=== PATIENT | female | born 1965 | race Caucasian/White ===

== ENCOUNTER 2018-04-16 11:01 | Emergency (ER) | payer MEDICARE, OTHER ==
[~2018-04-16] VITALS: Ht 172.7 cm; Wt 117.9 kg
[~2018-04-16 11:01] MED LIST: BACL10 PO; BUPR150T2 PO; GABA600 PO; HYDCHL12.5 PO; LISI20 PO; MORP15ER PO; Metoprolol Tar100 MG PO; NAPR500 PO; NORT25 PO; PRED10 PO; PROM25 PO; Roxicodone15 MG PO; TRAM50 PO
[2018-04-16] MEDS ORDERED: VOLTAREN100 GM TOP (11:08)
== END 2018-04-16 11:50 | disposition home or self-care (01) ==
LOC: ER 11:01
DX: M25.562 Pain in left knee (principal); I10 Essential (primary) hypertension; Z87.891 Personal history of nicotine dependence; Z88.2 Allergy status to sulfonamides; Z79.899 Other long term (current) drug therapy
CPT/HCPCS: J1885

== ENCOUNTER → 2018-08-04 | Outpatient (CLI) | payer MEDICARE, OTHER ==
[~2018-08-04] MED LIST changes: +VOLTAREN100 GM TOP
[2018-08-06 15:08] LABS: HPV 16 Negative (Negative); HPV 18 Negative (Negative); HPV OTHER HR TYPES Negative (Negative)
== END | disposition home or self-care (01) ==
LOC: LAB SHORT 11:56 → LAB 11:56
PROVIDERS: Nurse Practitioner Obstetrics & Gynecology
DX: Z01.419 Encounter for gynecological examination (general) (routine) without abnormal findings (principal)
CPT/HCPCS: 87624; G0123

== ENCOUNTER → 2019-03-10 | Outpatient (CLI) | payer MEDICARE, OTHER ==
[~2019-03-10] MED LIST changes: +ALBU90OI INH; +Aspir 8181 MG PO; +CELE200 PO; +Cymbalta30 MG PO; +Flonase 0.05% N16 GM; +METO100 PO; +MORP30ER PO; +Neurontin600 MG PO; +Oxycodone HCl20 M1 PO; +ZOLP5 PO; +Zantac150 MG PO
[2019-03-11 13:43] LABS: Stool Occult Bld Immuno 1 Positive (NEGATIVE)
== END | disposition home or self-care (01) ==
LOC: LAB SHORT 12:50 → LAB 12:50 → LAB FUT 01-21 16:15
PROVIDERS: Internal Medicine
DX: Z12.11 Encounter for screening for malignant neoplasm of colon (principal)
CPT/HCPCS: G0328

== ENCOUNTER 2019-04-14 08:55 | Day surgery (SDC) | payer MEDICARE ==
[~2019-04-14] VITALS: Ht 172.7 cm; Wt 115.9 kg
--- NOTE | 2019-04-14 10:03 | NUR ---
04/14/19 1003 Julia Herring 3 MISSED IV 1 IN RH BY MIRANDA VALVE 1 IN RW BY MIRANDA VALVE 1 RAC BY AGNES VALVE 1 GOOD IV IN LH BY AGNES PT TOW
== END 2019-04-14 11:15 | disposition home or self-care (01) ==
LOC: ORSCSDS 08:55
PROVIDERS: Internal Medicine Gastroenterology
PROC: 0DBN8ZX Excision of Sigmoid Colon, Via Natural or Artificial Opening Endoscopic, Diagnostic (ICD-10-PCS; principal; 2019-04-14 10:15)
PROC: 0DBL8ZX Excision of Transverse Colon, Via Natural or Artificial Opening Endoscopic, Diagnostic (ICD-10-PCS; principal; 2019-04-14 10:15)
DX: R19.5 Other fecal abnormalities (principal); D12.5 Benign neoplasm of sigmoid colon; K63.5 Polyp of colon; K64.8 Other hemorrhoids; Z86.010 Personal history of colon polyps; I10 Essential (primary) hypertension; Z87.891 Personal history of nicotine dependence; Z79.82 Long term (current) use of aspirin; Z79.899 Other long term (current) drug therapy
CPT/HCPCS: 88305; J2704; J7120

== ENCOUNTER → 2019-04-16 | Outpatient (CLI) | payer MEDICARE ==
[2019-04-16 16:15] LABS: U Amphetamine Screen Not Detected; U Barbituate Screen Not Detected; U Benzodiazapine Screen Not Detected; U Buprenorphine Screen Not Detected; U Cannabinoids Screen Not Detected; U Cocaine Screen Not Detected; U Methadone Screen Not Detected; U Methamphetamine Screen Not Detected; U Opiates Screen DETECTED; U Oxycodone Screen Not Detected; U Phencyclidine Screen Not Detected; U Propoxyphene Screen Not Detected
== END | disposition home or self-care (01) ==
LOC: LAB 11:46 → LAB SHORT 11:46
PROVIDERS: Internal Medicine
DX: Z51.81 Encounter for therapeutic drug level monitoring (principal); Z79.891 Long term (current) use of opiate analgesic
CPT/HCPCS: G0480

== ENCOUNTER 2020-10-18 04:11 | Observation (INO) | payer MEDICARE, SELFPAY ==
[~2020-10-18] VITALS: Ht 172.7 cm; Wt 121.9 kg
[~2020-10-18 04:11] MED LIST changes: +FAMO20 PO
[2020-10-18 05:48] LABS: Source, Urine Catheter
[2020-10-18 05:57] LABS: Appearance, Urine Clear (Clear); Bilirubin, Urine Neg (Neg); Blood, Urine Neg (Neg); Color, Urine Yellow (P-Yellow); Glucose Qualitative, Urine Neg (Neg); Ketones, Urine Neg (Neg); Leukocyte Esterase, Urine Neg (Neg); Nitrite, Urine Neg (Neg); Protein, Urine Neg (Neg); Urobilinogen, Urine NORM (Normal)
[2020-10-18 06:19] LABS: Alanine Aminotransfer (ALT/SGP 27 U/L (12-78); Albumin, Blood 3.2 g/dL (3.4-5.0); Alk Phos 117 U/L (50-136); Anion Gap 8 mmol/L (6-16); Aspartate Aminotrans (AST/SGOT 19 U/L (12-37); Bilirubin, Total 0.6 mg/dL (0.1-1.0); Blood Urea Nitrogen 14 mg/dL (8-24); Bun/Creatinine Ratio 24.4 (12.0-20.0); CO2, Blood 28 mmol/L (21-32); Calcium, Blood 8.3 mg/dL (8.5-10.1); Chloride, Blood 108 mmol/L (98-108); Creatinine, Blood 0.57 mg/dL (0.40-1.00); Ethanol (Alcohol), Blood, Med <3 mg/dL; Globulin, Blood 3.3 g/dL (2.2-4.0); Glomerular Filtration Rate >60 (60-); Glucose, Blood 127 mg/dL (70-99); Potassium, Blood 3.6 mmol/L (3.5-5.5); Sodium, Blood 144 mmol/L (136-145); Total Protein, Blood 6.5 g/dL (6.4-8.2); Troponin I <0.015 ng/mL (0.000-0.040)
[2020-10-18 06:23] LABS: U Amphetamine Screen Not Detected; U Barbituate Screen Not Detected; U Benzodiazapine Screen Not Detected; U Buprenorphine Screen Not Detected; U Cannabinoids Screen Not Detected; U Cocaine Screen Not Detected; U Methadone Screen Not Detected; U Methamphetamine Screen Not Detected; U Opiates Screen DETECTED; U Oxycodone Screen DETECTED; U Phencyclidine Screen Not Detected; U Propoxyphene Screen Not Detected
[2020-10-18 06:25] LABS: BASOPHILS ABSOLUTE AUTO 0.04 K/mm3 (0.00-0.23); BASOPHILS PERCENT AUTO 1 % (0-2); EOSINOPHILS ABSOLUTE AUTO 0.11 K/mm3 (0.00-0.68); EOSINOPHILS PERCENT AUTO 1 % (0-6); Hematocrit 36.4 % (33.0-51.0); Hemoglobin 11.6 g/dL (11.5-16.0); IMMATURE GRAN ABSOLUTE AUTO 0.03 K/mm3 (0.00-0.10); IMMATURE GRAN PERCENT AUTO 0 % (0-1); LYMPHOCYTES ABSOLUTE AUTO 1.37 K/mm3 (0.84-5.20); LYMPHOCYTES PERCENT AUTO 17 % (21-46); MONOCYTES ABSOLUTE AUTO 0.43 K/mm3 (0.16-1.47); MONOCYTES PERCENT AUTO 6 % (4-13); Mean Corpuscular HGB 28.6 pg (26.0-34.0); Mean Corpuscular HGB Conc 31.9 g/dL (31.5-36.5); Mean Corpuscular Volume 90 fL (80-100); Mean Platelet Volume 10.9 fL (9.1-12.4); NEUTROPHILS PERCENT AUTO 75 % (41-73); Platelet Count 179 K/mm3 (150-400); RDW Coefficient Variation 13.8 % (11.7-14.2); RDW Standard Deviation 44.9 fL (35.1-46.3); Red Blood Cell Count 4.06 M/mm3 (3.80-5.20); White Blood Cell Count 7.88 K/mm3 (4.00-11.30)
[2020-10-18 06:35] LABS: Influenza A, PCR NEGATIVE (NEGATIVE); Influenza B, PCR NEGATIVE (NEGATIVE); Resp Syncytial Virus, PCR NEGATIVE (NEGATIVE); SARS-Cov-2 (COVID-19) PCR, MMC NEGATIVE (NEGATIVE)
[2020-10-18 06:48] LABS: International Normalized Ratio 0.99; Prothrombin Time Results 10.6 Sec (9.7-11.5)
[2020-10-18 07:45] LABS: PCO2 Arterial 38.7 mmHg (35-45); pH Blood Arterial 7.49 (7.35-7.45)
--- NOTE | 2020-10-18 11:51 | NUR ---
ARRIVES TO ROOM AT ABOUT 1035. USED SLIDER TO GET PATIENT TO MED FLOOR BED. ASKS FOR PAIN MEDS ALMOST IMMEDIATELY. FALLS ASLEEP DURING ADMIT PROCESS. MOVES LEGS AND ARMS COSTANTLY. IV TO RT UPPER C.W. WITH SALINE GOING IN VIA PUMP. REMINDED CONSTANTLY ABOUT NOT MOVING HER ARM SO FLUIDS CAN GO IN. SAT PATIENT UP AND GAVE HER WATER AND DRANK WITHOUT DIFFICULTY, SO GIVEN P.O. MEDS.DOES NOT ANSWER ALL QUESTIONS TO ADMIT. BED ALARM ON AND 3 SIDE RAILS UP. [facility]
--- NOTE | 2020-10-18 14:56 | NUR ---
TALKED TO ABOUT PATIENT WANTING HER PAIN MEDS. NOT DROWSEY WHEN ADMITTED AND NOT THRASHING AROUND MUCH. TAKES MULTIPLE MEDS TO CAUSE DROWSINESS. THOUGHT POSSIBLE WITHDRAW, BUT URINE POSITIVE FOR OPIATES AND OXY. TAKES OXY 20 MG Q6HRS. OK TO ORDER OXY 5 MG Q6 HRS PRN
--- NOTE | 2020-10-18 17:22 | NUR ---
ALERT. ORIENTED. ONE PERSON ASSIST STANDBY W/CUES TO BSC. UNLABORED RESPIRATIONS. APPEARS A LITTLE MORE COMFORTABLE NOT THRASHING AROUND MUCH WHEN FIRST ARRIVED. MOMS NUMBER PLACED ON WHITE BOARD. IV RT UPPER C.W. SALINE LOCKED. USES CALL LIGHT APPROPRIATELY. WCTM
[2020-10-19 04:43] LABS: Source, Urine Clean Catch
[2020-10-19 04:45] LABS: Appearance, Urine Clear (Clear); Bilirubin, Urine Neg (Neg); Blood, Urine Neg (Neg); Color, Urine Yellow (P-Yellow); Glucose Qualitative, Urine Neg (Neg); Ketones, Urine Neg (Neg); Leukocyte Esterase, Urine Neg (Neg); Nitrite, Urine Neg (Neg); Protein, Urine Neg (Neg); Urobilinogen, Urine NORM (Normal)
[2020-10-19 05:04] LABS: Hemoglobin 11.7 g/dL (11.5-16.0); Mean Corpuscular HGB 28.6 pg (26.0-34.0); Mean Corpuscular HGB Conc 32.5 g/dL (31.5-36.5); Mean Corpuscular Volume 88 fL (80-100); Mean Platelet Volume 11.1 fL (9.1-12.4); Platelet Count 194 K/mm3 (150-400); RDW Coefficient Variation 13.6 % (11.7-14.2); RDW Standard Deviation 43.9 fL (35.1-46.3); Red Blood Cell Count 4.09 M/mm3 (3.80-5.20); White Blood Cell Count 7.05 K/mm3 (4.00-11.30)
[2020-10-19 05:26] LABS: Anion Gap 6 mmol/L (6-16); Blood Urea Nitrogen 9 mg/dL (8-24); Bun/Creatinine Ratio 18.5 (12.0-20.0); CO2, Blood 27 mmol/L (21-32); Calcium, Blood 8.7 mg/dL (8.5-10.1); Chloride, Blood 111 mmol/L (98-108); Creatinine, Blood 0.49 mg/dL (0.40-1.00); Glomerular Filtration Rate >60 (60-); Glucose, Blood 131 mg/dL (70-99); Magnesium, Blood 2.1 mg/dL (1.6-2.4); Potassium, Blood 3.2 mmol/L (3.5-5.5); Sodium, Blood 144 mmol/L (136-145)
--- NOTE | 2020-10-19 06:00 | NUR ---
SHIFT SUMMARY AWAKE AT SHIFT COMMENCE, VOICED DISCOMFORT IN BACK AND BILATERAL LEGS. RECEIVED ANALGESICS ORDERED - SEE MAR FOR DETAILS. MEDS EFFECTIVE SHE HAS BEEN RESTING WITH FEW INTERRUPTIONS SINCE. CALL LIGHT IN REACH
[2020-10-19] MEDS ORDERED: ACET325 PO (13:11)
[2020-10-19] MEDS ORDERED: LORA10ER PO (13:12)
[2020-10-19] MEDS ORDERED: AMOCLA875 PO (13:13)
--- NOTE | 2020-10-19 13:44 | NUR ---
REVIEW D'C WITH PATIENT. AWARE 2 MEDS AT PHARMACY. DISCUSS BOTH. AWARE CHANGE IN DOSES FOR NARCOTIC MEDS. STS WILL DISCUSS WITH PCP-HAS APPT 10/25 AT 230PM. AWARE NEEDS TO CALL PCP WITHIN 24 TO 48 HOURS UPON LEAVING H[facility]. IV D'C WITH NO SWELLING OR BRUISING. VERBALIZES UNDERSTANDING. AWAITING RIDE.
== END 2020-10-19 13:55 | disposition home health service (06) ==
LOC: ER 04:11 → MEDS 04:12
PROVIDERS: Emergency Medicine; Internal Medicine; Nurse Practitioner Acute Care; ADMIT Internal Medicine
DX: G92 Toxic encephalopathy (principal); H65.191 Other acute nonsuppurative otitis media, right ear; H70.001 Acute mastoiditis without complications, right ear; I10 Essential (primary) hypertension; K21.9 Gastro-esophageal reflux disease without esophagitis; E66.01 Morbid (severe) obesity due to excess calories; G89.29 Other chronic pain; Z20.822 Contact with and (suspected) exposure to COVID-19; Z96.651 Presence of right artificial knee joint; Z79.891 Long term (current) use of opiate analgesic; Z88.2 Allergy status to sulfonamides; Z87.891 Personal history of nicotine dependence; Z68.41 Body mass index [BMI] 40.0-44.9, adult
CPT/HCPCS: 0241U; 36415; 36600; 70450; 71045; 72125; 73060; 80048; 80053; 81003; 82140; 82803; 83605; 83735; 84145; 84484; 85025; 85027; 85610; 96372; 96374; 96375; 96376; 97161; 97530; 99285-25; A9270; G0378; G0480; J1650; J1885; J2060; J7030; P9612

== ENCOUNTER 2020-12-13 11:09 | Day surgery (SDC) | payer MEDICARE, SELFPAY ==
[~2020-12-13] VITALS: Ht 170.2 cm; Wt 126.1 kg
[~2020-12-13 11:09] MED LIST changes: +ACET325 PO; +AMOCLA875 PO; +LORA10ER PO
[2020-12-13] MEDS ORDERED: TIZANIDINE HCL2 M1 PO (11:37)
[2020-12-13] MEDS ORDERED: Flonase 0.05% N16 GM (11:38)
[2020-12-13] MEDS ORDERED: FAMO20 PO (11:39)
== END 2020-12-13 12:29 | disposition home or self-care (01) ==
LOC: ORSCSDS 11:09
PROVIDERS: Anesthesiology
PROC: 3E0R33Z Introduction of Anti-inflammatory into Spinal Canal, Percutaneous Approach (ICD-10-PCS; principal; 2020-12-13 12:15)
DX: M54.16 Radiculopathy, lumbar region (principal); F32.9 Major depressive disorder, single episode, unspecified; M54.5 Low back pain; I10 Essential (primary) hypertension; K21.9 Gastro-esophageal reflux disease without esophagitis; E66.01 Morbid (severe) obesity due to excess calories; Z68.41 Body mass index [BMI] 40.0-44.9, adult; Z79.899 Other long term (current) drug therapy
CPT/HCPCS: J1040

== ENCOUNTER 2022-06-09 09:39 | Emergency (ER) | payer OTHER ==
[~2022-06-09] VITALS: Ht 172.7 cm; Wt 120.2 kg
[~2022-06-09 09:39] MED LIST changes: +TIZANIDINE HCL2 M1 PO
== END 2022-06-09 14:17 | disposition home or self-care (01) ==
LOC: ER 09:39
DX: S82.65XA Nondisplaced fracture of lateral malleolus of left fibula, initial encounter for closed fracture (principal); W01.0XXA Fall on same level from slipping, tripping and stumbling without subsequent striking against object, initial encounter; I10 Essential (primary) hypertension; Z87.891 Personal history of nicotine dependence; Z88.2 Allergy status to sulfonamides; Z79.899 Other long term (current) drug therapy
CPT/HCPCS: 73562-LT; 73610; 73620

== ENCOUNTER 2022-06-14 11:04 | Day surgery (SDC) | payer OTHER ==
[~2022-06-14] VITALS: Ht 170.2 cm; Wt 127.3 kg
--- NOTE | 2022-06-14 13:25 | NUR ---
PT AMBULATORY WITH CRUTCHES. Surgical site prepped with 2% Chlorhexidine cloth wipe. History, Chart, Medications and Allergies reviewed before start of procedure.Pre-Op teaching done. Pt verbalizes understanding. Patient confirms NPO status and agrees with scheduled surgery.
--- NOTE | 2022-06-14 16:45 | NUR ---
PT UP TO WITH CRUTCHES AND IS STEADY. Discharge instructions reviewed with patient. Patient verbalizes understanding. Copy given to patient to take home, WELL MOM. Patient States Post-Procedure ride home has been arranged. Discharged via wheelchair to private car for ride home. PT REPORTS HAVING SCRIPT AND ASPIRIN AT HOME ALREADY.
--- NOTE | 2022-06-14 16:45 | NUR ---
PT REPORTS PAIN DOING MUCH BETTER AND REPORTS IS READY TO GO HOME.
== END 2022-06-14 16:45 | disposition home or self-care (01) ==
LOC: ORSCMMR 11:04 → ORD 12:30 → ORSCMMR 12:30
PROVIDERS: Orthopaedic Surgery
PROC: 0QSK04Z Reposition Left Fibula with Internal Fixation Device, Open Approach (ICD-10-PCS; principal; 2022-06-14 12:30)
DX: S82.62XA Displaced fracture of lateral malleolus of left fibula, initial encounter for closed fracture (principal); I10 Essential (primary) hypertension; E66.01 Morbid (severe) obesity due to excess calories; Z68.41 Body mass index [BMI] 40.0-44.9, adult; Z87.891 Personal history of nicotine dependence; B19.20 Unspecified viral hepatitis C without hepatic coma; Z79.899 Other long term (current) drug therapy
CPT/HCPCS: A9270; C1713; J0171; J0690; J1100; J2250; J2405; J2704; J2795; J3010; J7120

== ENCOUNTER 2024-04-26 09:02 | Emergency (ER) | payer OTHER ==
[~2024-04-26] VITALS: Ht 172.7 cm; Wt 120.2 kg
[2024-04-26] MEDS ORDERED: GABA300 PO (09:39)
[2024-04-26] MEDS ORDERED: BELSOMRA20 MG PO (09:40)
[2024-04-26] MEDS ORDERED: ESCI10 PO (09:40)
[2024-04-26] MEDS ORDERED: TiZANidine HCl 4 MG Tab PO ONE (10:20)
[2024-04-26] MEDS ORDERED: OxyCODONE HCL 5 MG TAB PO ONE (10:20)
[2024-04-26] MEDS ORDERED: TIZA4 PO (10:33)
[2024-04-26 10:48] VITALS: BP 132/77
== END 2024-04-26 10:59 | disposition home or self-care (01) ==
LOC: ER 09:02
DX: M43.6 Torticollis (principal); I10 Essential (primary) hypertension; Z88.2 Allergy status to sulfonamides; Z79.899 Other long term (current) drug therapy; Z87.891 Personal history of nicotine dependence
CPT/HCPCS: 99283; A9270